=== PATIENT | male | born 1960 | race American Indian/Alaskan Native ===

== ENCOUNTER 2018-09-16 04:14 | Emergency (ER) | payer BC ==
[2018-09-16] MEDS ORDERED: CATAPRES PO ONE (04:45)
--- NOTE | 2018-09-16 04:51 | XRay Report ---
CHEST 1 VIEW INDICATION / CLINICAL INFORMATION: Dyspnea. COMPARISON: None available. FINDINGS: SUPPORT DEVICES: None. HEART / MEDIASTINUM: No significant abnormality. LUNGS / PLEURA: No significant pulmonary or pleural abnormality. No pneumothorax. ADDITIONAL FINDINGS: No significant additional findings. IMPRESSION: No acute pulmonary or pleural abnormality. Signer Name: Dipak So MD FACR Signed: 09/16/2018 4:47 AM Workstation Name: [id number]
[2018-09-16 05:10] LABS: Basophils # (Auto) 0.1 K/mm3 (0.0-0.1); Basophils % (Auto) 0.4 % (0.0-1.8); Eosinophils # (Auto) 0.1 K/mm3 (0.0-0.4); Eosinophils % (Auto) 0.5 % (0.0-4.3); Hematocrit 39.2 % (35.5-45.6); Hemoglobin 13.2 gm/dl (11.8-15.2); Lymphocytes # (Auto) 2.3 K/mm3 (1.2-5.4); Lymphocytes % (Auto) 15.4 % (13.4-35.0); Mean Corpuscular HGB Conc 34 % (32-34); Mean Corpuscular Volume 89 fl (84-94); Monocytes # (Auto) 0.8 K/mm3 (0.0-0.8); Monocytes % (Auto) 5.1 % (0.0-7.3); Platelet Count 234 K/mm3 (140-440); Red Blood Count 4.43 M/mm3 (3.65-5.03); Red Cell Distribution Width 15.9 % (13.2-15.2)
[2018-09-16 05:26] LABS: BUN/Creatinine Ratio 13; Blood Urea Nitrogen 12 mg/dL (9-20); Calcium 8.6 mg/dL (8.4-10.2); Hemolysis Index 4
[2018-09-16 06:07] VITALS: BP 168/92
--- NOTE | 2018-09-16 06:20 | Emergency Department Report ---
HPI - General Chief Complaint: Dyspnea/Respdistress Time Seen by Provider: 09/16/18 06:08 - HPI HPI: Room 3 The patient is a 58-year-old male presenting with chief complaint of "feeling weird." The patient states she's been out of his blood pressure medication for the past 5 days. The patient states this made him feel "weird." When asked what "weird" entails the patient states he does not know. Patient states he's had insomnia but denies any forms of pain. Patient states he has slight shortness of breath yesterday as well as intermittent cough has been nonproductive. Patient denies fever or rhinorrhea states he feels like he has a "cold." The patient was administered clonidine prior to my arrival and states he now feels "all right." Location: [See above] Duration: [See above] Quality: [See above] Severity: [See above] Modifying factors: [see above] Context: [see above] Mode of transportation: [not driving] ED Past Medical Hx - Past Medical History Previous Medical History?: Yes Hx Hypertension: Yes - Surgical History Past Surgical History?: No - Family History Family history: no significant - Social History Smoking Status: Never Smoker Substance Use Type: Alcohol (occasional) - Medications Home Medications: Home Medications Medication Instructions Recorded Confirmed Last Taken Type Telmisartan/Hydrochlorothiazid 1 each PO QDAY #30 tablet 05/16/13 Unknown Rx [Micardis Hct 40-12.5 mg] Azithromycin [Zithromax Z-KARLY] 0 mg PO DAILY #6 tab 09/16/18 Unknown Rx Losartan [Cozaar] 100 mg PO QDAY #90 tablet 09/16/18 Unknown Rx ED Review of Systems ROS: Stated complaint: POSS HIGH BP Other details as noted in HPI Constitutional: denies: fever Eyes: denies: eye pain ENT: denies: throat pain Respiratory: cough, shortness of breath Cardiovascular: denies: chest pain Endocrine: no symptoms reported Gastrointestinal: denies: abdominal pain Genitourinary: denies: dysuria Musculoskeletal: denies: back pain Neurological: denies: headache Physical Exam - Physical Exam Vital Signs: Vital Signs 09/16/18 09/16/18 09/16/18 04:19 04:47 04:54 Temperature 98.8 F 98.2 F Pulse Rate 94 H 88 85 Respiratory 20 22 Rate Blood Pressure 156/111 198/91 Blood Pressure 198/91 [Left] O2 Sat by Pulse 98 97 Oximetry 09/16/18 09/16/18 09/16/18 05:15 05:30 06:00 Temperature Pulse Rate 74 70 70 Respiratory 37 H 21 18 Rate Blood Pressure 198/91 174/99 168/92 Blood Pressure [Left] O2 Sat by Pulse 95 92 95 Oximetry Physical Exam: GENERAL: The patient is well-developed well-nourished male lying on stretcher not appearing to be in acute distress. [] HEENT: Normocephalic. Atraumatic. Extraocular motions are intact. Patient has moist mucous membranes. NECK: Supple. Trachea midline CHEST/LUNGS: Clear to auscultation. There is no respiratory distress noted. HEART/CARDIOVASCULAR: Regular. There is no tachycardia. There is no gallop rub or murmur. ABDOMEN: Abdomen is soft, nontender. Patient has normal bowel sounds. There is no abdominal distention. SKIN: There is no rash. There is no edema. There is no diaphoresis. and gait. MUSCULOSKELETAL: There is no evidence of acute injury. ED Course Vital Signs 09/16/18 09/16/18 09/16/18 04:19 04:47 04:54 Temperature 98.8 F 98.2 F Pulse Rate 94 H 88 85 Respiratory 20 22 Rate Blood Pressure 156/111 198/91 Blood Pressure 198/91 [Left] O2 Sat by Pulse 98 97 Oximetry 09/16/18 09/16/18 09/16/18 05:15 05:30 06:00 Temperature Pulse Rate 74 70 70 Respiratory 37 H 21 18 Rate Blood Pressure 198/91 174/99 168/92 Blood Pressure [Left] O2 Sat by Pulse 95 92 95 Oximetry ED Medical Decision Making - Lab Data Result diagrams: 09/16/18 04:48 09/16/18 04:48 Laboratory Tests 09/16/18 09/16/18 09/16/18 04:48 04:48 04:53 WBC 15.1 H RBC 4.43 Hgb 13.2 Hct 39.2 MCV 89 MCH 30 MCHC 34 RDW 15.9 H Plt Count 234 Lymph % (Auto) 15.4 [place] % (Auto) 5.1 Eos % (Auto) 0.5 Baso % (Auto) 0.4 Lymph # 2.3 [place] # 0.8 Eos # 0.1 Baso # 0.1 Seg Neutrophils % 78.6 H Seg Neutrophils # 11.8 H Sodium 137 Potassium 3.2 L Chloride 100.7 Carbon Dioxide 22 Anion Gap 18 BUN 12 Creatinine 0.9 Estimated GFR > 60 BUN/Creatinine Ratio 13 Glucose 175 H Calcium 8.6 Troponin T < 0.010 NT-Pro-B Natriuret Pep 73.37 - EKG Data -: EKG Interpreted by Me EKG shows normal: sinus rhythm Rate: normal - EKG Data When compared to previous EKG there are: previous EKG unavailable Interpretation: nonspecific ST-T wave bonita (T-wave inversion in lead aVL) - Radiology Data Radiology results: report reviewed (chest x-ray), image reviewed (chest x-ray) interpreted by me: Chest x-ray-no focal infiltrates, no pneumothorax [facility] [address] [place] [address] XRay Report Signed Patient: ALCIDES JACKSON MR#: [id number] : 1960 Acct:[id number] Age/Sex: 58 / M ADM Date: 09/16/18 Loc: ED Attending Dr: Ordering Physician: ED MD KAYCEE Date of Service: 09/16/18 Pr ocedure(s): XR chest 1V ap Accession Number(s): [id number] cc: ED MD KAYCEE Fluoro Time In Minutes: CHEST 1 VIEW INDICATION / CLINICAL INFORMATION: Dyspnea. COMPARISON: None available. FINDINGS: SUPPORT DEVICES: None. HEART / MEDIASTINUM: No significant abnormality. LUNGS / PLEURA: No significant pulmona ry or pleural abnormality. No pneumothorax. ADDITIONAL FINDINGS: No significant additional findings. IMPRESSION: No acute pulmonary or pleural abnormality. Signer Name: Dipak So MD FACR Signed: 09/16/2018 4:47 AM Workstation Name: [id number] Transcribed By: MS Dictated By: Dipak So MD Electronically Authenticated By: Dipak So MD Signed Date/Time: 09/16/18446 DD/ 6 TD/TT: - Differential Diagnosis hypertensive urgency, bronchitis, pneumonia Critical care attestation.: If time is entered above; I have spent that time in minutes in the direct care of this critically ill patient, excluding procedure time. ED Disposition Clinical Impression: Hypertension, Acute bronchitis Disposition: DC-01 TO HOME OR SELFCARE Is pt being admited?: No Does the pt Need Aspirin: No Condition: Stable Instructions: Hypertension (ED), Acute Bronchitis (ED) Additional Instructions: Return to the emergency department immediately should you develop worsening symptoms, fever, inability to tolerate food or liquid or any other concerns. Prescriptions: Losartan [Cozaar] 100 mg PO QDAY #90 tablet Azithromycin [Zithromax Z-KARLY] 0 mg PO DAILY #6 tab Referrals: PRIMARY CARE, [Referring] - 3-5 Days Time of Disposition: 06:23
[2018-09-16] MEDS ORDERED: K-DUR PO ONE (06:27)
== END 2018-09-16 06:41 | disposition home or self-care (01) ==
LOC: ED 04:14
DX: J20.9 Acute bronchitis, unspecified (principal); I10 Essential (primary) hypertension; Z79.899 Other long term (current) drug therapy
CPT/HCPCS: 36415; 71045; 80048; 83880; 84484; 85025; 93005; 93010; 99284

== ENCOUNTER 2019-07-18 10:30 | Inpatient (IN) | payer BC ==
[2019-07-18] MEDS ORDERED: amLODIPine 5 MG TAB PO ONE ×2 (11:57→12:56)
--- NOTE | 2019-07-18 12:00 | Emergency Department Report ---
ED Shortness of Breath HPI - General Chief Complaint: Dyspnea/Respdistress Stated Complaint: SOB Time Seen by Provider: 07/18/19 11:56 Source: patient Mode of arrival: Ambulatory Limitations: No Limitations - History of Present Illness Initial Comments: CC: "I think I am just out of shape" HPI: Mr. Agee is a 59 yo male with hx of HTN who presents with shortness of breath for one week. He has been home away from work during the COVID 19 pandemic for the past 2 weeks. He returned to work today. He felt ouf of breath "Just a little". The shortness of breath has been present for one week. Mr. Agee denies fever, cough, chest pain. No new leg swelling. He is followed every 3 to 6 months by his primary physician. He has been compliant with his blood pressure medicine. He did take the medicine today. No known history of heart disease. MD Complaint: shortness of breath -: Gradual, week(s) (1) Severity: mild Consistency: now resolved Improves With: nothing Worsens With: nothing Known History Of: other (No history of lung or heart disease) - Related Data Previous Rx's Medication Instructions Recorded Last Taken Type Telmisartan/Hydrochlorothiazid 1 each PO QDAY #30 tablet 05/16/13 Unknown Rx [Micardis Hct 40-12.5 mg] Azithromycin [Zithromax Z-KARLY] 0 mg PO DAILY #6 tab 09/16/18 Unknown Rx Losartan [Cozaar] 100 mg PO QDAY #90 tablet 09/16/18 Unknown Rx Allergies Allergy/AdvReac Type Severity Reaction Status Date / Time No Known Allergies Allergy Unverified 05/16/13 10:13 ED Review of Systems ROS: Stated complaint: SOB Other details as noted in HPI Comment: All other systems reviewed and negative Constitutional: denies: fever, malaise Respiratory: shortness of breath. denies: cough Cardiovascular: denies: chest pain ED Past Medical Hx - Past Medical History Previous Medical History?: Yes Hx Hypertension: Yes - Surgical History Past Surgical History?: No - Social History Smoking Status: Never Smoker - Medications Home Medications: Home Medications Medication Instructions Recorded Confirmed Last Taken Type Telmisartan/Hydrochlorothiazid 1 each PO QDAY #30 tablet 05/16/13 Unknown Rx [Micardis Hct 40-12.5 mg] Azithromycin [Zithromax Z-KARLY] 0 mg PO DAILY #6 tab 09/16/18 Unknown Rx Losartan [Cozaar] 100 mg PO QDAY #90 tablet 09/16/18 Unknown Rx ED Physical Exam - General Limitations: No Limitations General appearance: alert, in no apparent distress - Head Head exam: Present: atraumatic, normocephalic - Eye Eye exam: Present: normal appearance - ENT ENT exam: Present: mucous membranes moist - Neck Neck exam: Present: normal inspection, full ROM - Respiratory Respiratory exam: Present: normal lung sounds bilaterally. Absent: respiratory distress, wheezes, rales, rhonchi - Cardiovascular Cardiovascular Exam: Present: regular rate, normal rhythm, normal heart sounds. Absent: systolic murmur, diastolic murmur, rubs, gallop - GI/Abdominal GI/Abdominal exam: Present: soft, normal bowel sounds. Absent: distended, tenderness, guarding, rebound - Rectal Rectal exam: Present: deferred - Extremities Exam Extremities exam: Present: normal inspection - Neurological Exam Neurological exam: Present: alert, oriented X3 - Psychiatric Psychiatric exam: Present: normal affect, normal mood - Skin Skin exam: Present: warm, dry, intact, normal color. Absent: rash ED Course Vital Signs 07/18/19 07/18/19 07/18/19 10:51 12:04 12:23 Temperature 98.1 F Pulse Rate 96 H 80 Respiratory 18 16 Rate Blood Pressure 190/98 174/102 Blood Pressure 174/102 [Left] O2 Sat by Pulse 95 94 Oximetry ED Medical Decision Making - EKG Data 07/18/19 11:58 EKG obtained 1126 Normal sinus rhythm rate 75 bpm normal axis normal intervals nonspecific T wave pattern - Radiology Data Radiology results: report reviewed Chest radiograph: No acute findings according to radiology report - Medical Decision Making Mr. Grier is a 59-year-old male with history of hypertension and obesity. Differential diagnosis includes: Primary lung disease, reactive airway disease, heart failure, deconditioning. No evidence of life-threatening condition such as pulmonary embolism pneumothorax pneumonia. Patient appears quite well. I strongly encouraged follow-up with his outpatient physician. He will need blood pressure management. He would be at risk for heart failure with uncontrolled hypertension. Critical care attestation.: If time is entered above; I have spent that time in minutes in the direct care of this critically ill patient, excluding procedure time. ED Disposition Clinical Impression: Hypertensive urgency, Shortness of breath Disposition: DC-01 TO HOME OR SELFCARE Is pt being admited?: No Does the pt Need Aspirin: No Condition: Stable Instructions: Dyspnea (ED) Referrals: PRIMARY CARE, [Primary Care Provider] - [facility] Forms: Work/School Release Form(ED)
--- NOTE | 2019-07-18 12:20 | XRay Report ---
CHEST 2 VIEWS INDICATION / CLINICAL INFORMATION: shortness of breath. COMPARISON: 09/16/2018 FINDINGS: SUPPORT DEVICES: None. HEART / MEDIASTINUM: No significant abnormality. LUNGS / PLEURA: No significant pulmonary or pleural abnormality. No pneumothorax. ADDITIONAL FINDINGS: No significant additional findings. IMPRESSION: 1. No acute findings. Signer Name: Víctor Neville MD Signed: 07/18/2019 12:15 PM Workstation Name: [id number]
[2019-07-18] MEDS ORDERED: PANTOPRAZOLE 80 MG in SODIUM CHLORIDE 0.9% 100 ML IV SCH (13:00)
[2019-07-18 15:16] LABS: Basophils % (Auto) 0.8 % (0.0-1.8); Eosinophils # (Auto) 0.1 K/mm3 (0.0-0.4); Eosinophils % (Auto) 1.2 % (0.0-4.3); Hematocrit 40.8 % (35.5-45.6); Hemoglobin 13.5 gm/dl (11.8-15.2); Lymphocytes # (Auto) 1.1 K/mm3 (1.2-5.4); Lymphocytes % (Auto) 23.2 % (13.4-35.0); Mean Corpuscular HGB Conc 33 % (32-34); Mean Corpuscular Volume 87 fl (84-94); Monocytes # (Auto) 0.3 K/mm3 (0.0-0.8); Monocytes % (Auto) 7.2 % (0.0-7.3); Platelet Count 223 K/mm3 (140-440); Red Blood Count 4.67 M/mm3 (3.65-5.03); Red Cell Distribution Width 15.8 % (13.2-15.2)
[2019-07-18 15:38] LABS: BUN/Creatinine Ratio 9; Blood Urea Nitrogen 9 mg/dL (9-20); Calcium 8.8 mg/dL (8.4-10.2); Hemolysis Index 24
--- NOTE | 2019-07-18 18:26 | History and Physical Report ---
History of Present Illness Chief complaint: It is hard for me to catch my breath History of present illness: 59 YO Male with Malnutrition, HTN presents to ED for evaluation. Pt states that he has experienced shortness of breath over the past week with persistently worsening symptoms over the same timeframe. Patient states that while conducting his daily work activities he was unable to complete his assigned task. Patient states that he felt "out of shape". Patient acknowledges decreased exercise tolerance, dyspnea on exertion, and mild dyspnea at rest. Patient transported to [facility] via private vehicle for further care and evaluation. Patient seen and evaluated in the emergency department. Lab and imaging studies reviewed. Patient underwent CT a of the chest and was found to have bilateral pulmonary emboli. Patient also found to have symptoms consistent with CHF decompensation. Patient admitted to medical floor and initiated on therapeutic anticoagulation. Echocardiogram ordered and is pending at the time of admission. Patient denies fever, chills, chest pain, palpitations, productive cough, recent ill contacts, unilateral leg swelling, calf pain, prolonged travel/immobility, individual/family history of DVT/PE/bleeding/blood clotting disorders. Or known exposure COVID-19. Advanced care planning conducted in ED. No prior admission for review. All medications at the time of admission has been reconciled. Past History Past Medical History: hypertension, other (See HPI) Past Surgical History: No surgical history, Other (Reviewed) Social history: single Medications and Allergies Allergies Allergy/AdvReac Type Severity Reaction Status Date / Time No Known Allergies Allergy Unverified 05/16/13 10:13 Home Medications Medication Instructions Recorded Confirmed Last Taken Type Telmisartan/Hydrochlorothiazid 1 each PO QDAY #30 tablet 05/16/13 Unknown Rx [Micardis Hct 40-12.5 mg] Azithromycin [Zithromax Z-KARLY] 0 mg PO DAILY #6 tab 09/16/18 Unknown Rx Losartan [Cozaar] 100 mg PO QDAY #90 tablet 09/16/18 Unknown Rx Review of Systems Constitutional: no weight loss, no weight gain, no fever, no chills Ears, nose, mouth and throat: no ear pain, no ear discharge, no tinnitis, no decreased hearing, no nose pain Cardiovascular: shortness of breath, dyspnea on exertion, decreased exercise tolerance, no chest pain, no palpitations, no edema, no syncope Respiratory: no cough, no cough with sputum, no excessive sputum, no hemoptysis Gastrointestinal: no abdominal pain, no nausea, no vomiting, no diarrhea Genitourinary Male: no hematuria, no flank pain, no discharge, no urinary frequency, no urinary hesitancy Rectal: no pain, no incontinence, no bleeding Musculoskeletal: no neck stiffness, no shooting arm pain, no arm numbness/tingling, no low back pain, no shooting leg pain, no leg numbness/tingling, no redness of joints Integumentary: no rash, no pruritis, no redness, no sores, no wounds Neurological: no transient paralysis, no paralysis, no weakness, no parathesias, no numbness, no tingling, no seizures, no syncope Psychiatric: no anxiety, no memory loss, no change in sleep habits, no sleep disturbances, no insomnia, no hypersomnia, no change in libido, no suicidal ideation, no disorientation Endocrine: no cold intolerance, no heat intolerance, no polyphagia, no excessive thirst, no polydipsia, no polyuria, no nocturia Hematologic/Lymphatic: no easy bruising, no easy bleeding, no lymphadenopathy, no lymphedema Allergic/Immunologic: no urticaria, no allergic rhinitis, no wheezing, no persistent infections, no anaphylaxis, no angioedema Exam - Constitutional Vitals: Temp Pulse Resp BP Pulse Ox 98.1 F 80 16 162/99 100 07/18/19 10:51 07/18/19 12:04 07/18/19 12:04 07/18/19 15:16 07/18/19 15:16 General appearance: Present: mild distress, cachectic - EENT Eyes: Present: PERRL ENT: hearing intact, clear oral mucosa - Neck Neck: Present: supple, normal ROM - Respiratory Respiratory effort: normal Respiratory: bilateral: diminished - Cardiovascular Heart Sounds: Present: S1 & S2. Absent: rub, click - Extremities Extremities: pulses symmetrical, No edema Peripheral Pulses: within normal limits - Abdominal General gastrointestinal: Present: soft, non-tender, non-distended, normal bowel sounds Male genitourinary: Present: normal - Integumentary Integumentary: Present: clear, warm, dry - Musculoskeletal Musculoskeletal: gait normal, strength equal bilaterally - Psychiatric Psychiatric: appropriate mood/affect, intact judgment & insight - Neurologic Neurologic: CNII-XII intact, moves all extremities HEART Score - HEART Score Troponin: Troponin T < 0.010 ng/mL (0.00-0.029) 07/18/19 15:00 Results - Labs CBC & Chem 7: 07/18/19 15:00 07/18/19 15:08 Labs: Abnormal lab results 07/18/19 07/18/19 07/18/19 Range/Units 15:00 15:00 15:08 RDW 15.8 H (13.2-15.2) % Lymph # 1.1 L (1.2-5.4) K/mm3 D-Dimer 1434.69 H (0-234) ng/mlDDU Glucose 152 H (75-100) mg/dL Assessment and Plan - Patient Problems (1) Acute pulmonary embolism Current Visit: Yes Status: Acute Qualifiers: Acute cor pulmonale presence: without acute cor pulmonale Plan to address problem: CTA chest, chest x-ray, supplemental oxygen, therapeutic anticoagulation, supportive care. (2) Diastolic CHF Current Visit: Yes Status: Acute Qualifiers: Heart failure chronicity: acute Qualified Code(s): I50.31 - Acute diastolic (congestive) heart failure Plan to address problem: Strict I's/O, monitor urine output every shift, daily weight, BNP, d-dimer, afterload reduction, echocardiogram ordered and is pending at the time of admission. (3) Malnutrition Current Visit: Yes Status: Acute Qualifiers: Protein-calorie malnutrition severity: moderate Plan to address problem: Encourage increased protein intake, dietary supplementation. (4) Hypertension Current Visit: Yes Status: Acute Qualifiers: Hypertension type: essential hypertension Qualified Code(s): I10 - Essential (primary) hypertension Plan to address problem: Monitor blood pressure every shift, continue medical management. (5) DVT prophylaxis Current Visit: Yes Status: Acute Plan to address problem: SCD to bilateral lower extremities while in bed, continue therapeutic anticoagulation. (6) Advance care planning Current Visit: Yes Status: Acute Plan to address problem: Patient is full code, disease education conducted, patient knowledges understanding and agreement with care plan, +30 minutes.
[2019-07-18] MEDS ORDERED: ACETAMINOPHEN 325 MG TAB PO PRN (18:27)
[2019-07-18] MEDS ORDERED: ONDANSETRON 4 MG/2 ML INJ IV PRN (18:27)
--- NOTE | 2019-07-18 18:30 | Cat Scan Report ---
CTA CHEST WITH IV CONTRAST INDICATION: dyspnea. TECHNIQUE: Axial CT images were obtained through the chest after injection of 2 mL Omnipaque 350 IV contrast. 3 plane MIP reconstructions were produced. All CT scans at this location are performed using CT dose re duction for ALARA by means of automated exposure control. COMPARISON: None available. FINDINGS: Pulmonary Arteries: There are segmental emboli in both lower lobes and in the right middle lobe as we ll as the right upper lobe and lingula of the left lobe. There is no evidence for right heart strain. Lungs: No significant abnormality. Trachea and Bronchi: No significant abnormality. Heart and Pericardium: No significant abnormality. Vasculature: No significant abnormality. Lymphatics: No lymphadenopathy. Additional Findings: There is a well-defined cystic lesion measuring 3.1 cm along the right lateral a spect of the spine in the posterior mediastinum at the T3 vertebral level that is probably a neurente divina cyst. There is also a large 3.5 cm thyroid nodule extending substernally on the right. Upper Abdomen: Hepatic steatosis. Skeletal Structures: No significant osseous abnormality. IMPRESSION: 1. Bilateral segmental pulmonary emboli without evidence for right heart strain. 2. Incidental cystic structure in the posterior mediastinum along the right side of the T3 vertebral body that is probably a neurenteric cyst. If there are no prior exams available for comparison, repea t CT evaluation in 3-6 months to evaluate for stability is recommended. 3. Incidental right thyroid nodule measuring 3.5 cm. Further evaluation with thyroid ultrasound recom mended. Findings discussed with Dr. Lacy at 5:24 PM central time on 07/18/2019. Signer Name: Luis Ayala MD Signed: 07/18/2019 6:26 PM Workstation Name: [id number]
[2019-07-18 19:11] LABS: Free T4 (Free Thyroxine) 1.12 ng/dL (0.76-1.46)
[2019-07-18] MEDS: APIXABAN 5 MG TAB PO SCH (22:04)
[2019-07-18] MEDS ORDERED: hydrALAZINE 20 MG/1 ML INJ IV PRN (23:59)
[2019-07-19] MEDS ORDERED: ALPRAZolam 0.25 MG TAB PO ONE (02:03)
[2019-07-19] MEDS: APIXABAN 5 MG TAB PO SCH ×2 (09:42→21:22)
[2019-07-19] MEDS: LOSARTAN 50 MG TAB PO SCH (09:43)
[2019-07-19] MEDS ORDERED: NON-FORMULARY EACH (Losartan [Cozaar] 100 MG) PO SCH (10:00)
[2019-07-19] MEDS ORDERED: HYDROCHLOROTHIAZID PO SCH (10:00)
[2019-07-19] MEDS ORDERED: TELMISARTAN PO SCH (10:00)
[2019-07-19] MEDS ORDERED: LOSARTAN 50 MG TAB PO SCH (10:00)
[2019-07-19] MEDS ORDERED: hydroCHLOROthiazide 12.5 MG CAP PO SCH (10:00)
--- NOTE | 2019-07-19 12:59 | Progress Note ---
Assessment and Plan /Acute pulmonary embolism cont supplemental oxygen, therapeutic anticoagulation with eliquis, cont supportive care. monitor h/h /Morbid Obesity Encourage wt reduction diet and exercise when clinically stable as outpt. / Hypertension Monitor blood pressure every shift, continue medical management. /DVT prophylaxis SCD to bilateral lower extremities while in bed, continue therapeutic anticoagulation. / Advance care planning Patient is full code, disease education conducted, patient knowledges understanding and agreement with care plan Possible d/c in the am if medically stable Subjective Date of service: 07/19/19 Interval history: Patient seen and examined c/o difficulty breathing on exertion denies any chest pain Objective - Constitutional Vitals: Vital Signs - 12hr 07/19/19 07/19/19 07/19/19 01:15 03:28 07:25 Temperature 98.0 F 97.8 F Pulse Rate 70 Respiratory 18 20 Rate Blood Pressure 151/91 180/88 Blood Pressure 180/72 [Left] O2 Sat by Pulse 98 Oximetry 07/19/19 08:33 Temperature Pulse Rate Respiratory Rate Blood Pressure Blood Pressure [Left] O2 Sat by Pulse 98 Oximetry General appearance: Present: no acute distress, obese (morbid) - EENT Eyes: PERRL, EOM intact ENT: hearing intact, clear oral mucosa Ears: bilateral: normal - Neck Neck: supple, normal ROM - Respiratory Respiratory effort: normal Respiratory: bilateral: CTA - Breasts Breasts: normal - Cardiovascular Rhythm: regular Heart Sounds: Present: S1 & S2. Absent: gallop, rub Extremities: pulses intact, No edema, normal color, Full ROM - Gastrointestinal General gastrointestinal: Present: soft, non-tender, non-distended, normal bowel sounds - Genitourinary Male genitourinary: normal - Integumentary Integumentary: clear, warm, dry - Musculoskeletal Musculoskeletal: 1, strength equal bilaterally - Neurologic Neurologic: moves all extremities - Psychiatric Psychiatric: memory intact, appropriate mood/affect, intact judgment & insight - Labs CBC & Chem 7: 07/20/19 10:50 07/18/19 15:08 Labs: Abnormal lab results 07/18/19 07/18/19 07/18/19 Range/Units 15:00 15:00 15:08 RDW 15.8 H (13.2-15.2) % Lymph # 1.1 L (1.2-5.4) K/mm3 D-Dimer 1434.69 H (0-234) ng/mlDDU Glucose 152 H (75-100) mg/dL HEART Score - HEART Score Troponin: Troponin T < 0.010 ng/mL (0.00-0.029) 07/18/19 15:00
[2019-07-20] MEDS ORDERED: TEMAZEPAM 15 MG CAP PO ONE ×2 (01:59→02:15)
[2019-07-20 08:36] VITALS: BP 141/77
[2019-07-20] MEDS ORDERED: hydroCHLOROthiazide 12.5 MG CAP PO SCH (10:00)
[2019-07-20] MEDS: APIXABAN 5 MG TAB PO SCH (10:12)
[2019-07-20] MEDS: LOSARTAN 50 MG TAB PO SCH (10:12)
[2019-07-20 11:02] LABS: Hematocrit 40.8 % (35.5-45.6); Hemoglobin 13.7 gm/dl (11.8-15.2)
--- NOTE | 2019-07-20 11:26 | Discharge Summary ---
Providers - Providers Date of Admission: 07/18/19 18:27 Date of discharge: 07/20/19 Attending physician: GAYLE CHAMORRO Primary care physician: JAVA [employer] ENGINEER Hospitalization Condition: Stable Pertinent studies: CXR CTA chest 2d echo Hospital course: 59 YO Male with morbid obesity, HTN presents to ED for evaluation of shortness of breath over the past week with persistently worsening symptoms over the same timeframe. Patient seen and evaluated in the emergency department. Lab and imaging studies reviewed. Patient underwent CT a of the chest and was found to have bilateral pulmonary emboli. Patient was started on therapeutic dose of eliquis,his 2d echo showed preserved EF, h/h was stable, O2 sat was >94% on ambulation on RA. Patient also had incidental findings of thyroid nodule and a cystic findings on the left thoracic T3 vertebra. This hospital doesnot have any oncologist or endocrine service. Patient was instructed to f/u outpt with PCP. He was then discharged home in stable condition with outpt f/u. Discharge diagnosis nad Mx; /Acute pulmonary embolism Cont therapeutic anticoagulation with eliquis, /Morbid Obesity Encourage wt reduction diet and exercise when clinically stable as outpt. / Hypertension, stable continue medical management. /Thyroid nodule, outpt f/u, TSH/T4 within normal limit /DVT prophylaxis SCD to bilateral lower extremities while in bed, continue therapeutic anticoagulation. Disposition: - TO HOME OR SELFCARE Time spent for discharge: 34 minutes Core Measure Documentation - Palliative Care Palliative Care/ Comfort Measures: Not Applicable - Core Measures Any of the following diagnoses?: none Exam - Constitutional Vitals: Temp Pulse Resp BP Pulse Ox 97.9 F 58 L 22 141/77 96 07/20/19 08:30 07/20/19 08:41 07/20/19 08:30 07/20/19 08:30 07/20/19 08:30 General appearance: Present: no acute distress, obese - EENT Eyes: Present: PERRL ENT: hearing intact, clear oral mucosa - Neck Neck: Present: supple, normal ROM - Respiratory Respiratory effort: normal Respiratory: bilateral: CTA - Cardiovascular Heart Sounds: Present: S1 & S2. Absent: rub, click - Extremities Extremities: pulses symmetrical, No edema Peripheral Pulses: within normal limits - Abdominal General gastrointestinal: Present: soft, non-tender, non-distended, normal bowel sounds - Integumentary Integumentary: Present: clear, warm, dry - Musculoskeletal Musculoskeletal: gait normal, strength equal bilaterally - Psychiatric Psychiatric: appropriate mood/affect, intact judgment & insight - Neurologic Neurologic: CNII-XII intact, moves all extremities Plan Activity: advance as tolerated Weight Bearing Status: Non-Weight Bearing Diet: low fat, low salt Additional Instructions: f/u with endocrinilogist in 1-2 weeks Follow up with: PRIMARY CARE, [Primary Care Provider] - 7 Days Prescriptions: Apixaban [Eliquis starter pack] 5 mg PO BID #30 tab.[id number]
== END 2019-07-20 15:36 | disposition home or self-care (01) | DRG 175 ==
LOC: ED 10:30 → 4A 18:27
PROVIDERS: ADMIT Internal Medicine; ATTEND Internal Medicine
DX: I26.99 Other pulmonary embolism without acute cor pulmonale (principal); I50.31 Acute diastolic (congestive) heart failure; E44.0 Moderate protein-calorie malnutrition; Z68.41 Body mass index [BMI] 40.0-44.9, adult; I16.0 Hypertensive urgency; I11.0 Hypertensive heart disease with heart failure; Z71.3 Dietary counseling and surveillance
CPT/HCPCS: 36415; 71046; 71275; 80048; 83880; 84439; 84443; 84484; 85014; 85018; 85025; 85379; 93005; 93306; 94760; G0378; C9113; J0360; Q9967